=== PATIENT | female | born 1995 ===

== ENCOUNTER 2017-05-31 10:12 | Emergency (ER) | payer MEDICAID, OTHER ==
[2017-05-31 11:25] LABS: HCG,QUALITATIVE URINE NEGATIVE (NEGATIVE)
[2017-05-31] MEDS ORDERED: Sodium Chloride 0.9% 1,000 ML IV STA (12:04)
[2017-05-31 12:32] LABS: URINE BILIRUBIN NEGATIVE (NEGATIVE); URINE CLARITY Clear (Clear); URINE COLOR YELLOW (YELLOW); URINE GLUCOSE (UA) NEGATIVE (Normal)
[2017-05-31 12:33] LABS: URINE BLOOD NEGATIVE (NEGATIVE); URINE PROTEIN NEGATIVE (NEGATIVE); URINE UROBILINOGEN 0.2 mg/dL (0.2-1.0)
[2017-05-31 12:34] LABS: URINE LEUKOCYTE ESTERASE Negative Leu/uL (Negative)
[2017-05-31 12:48] LABS: BASO % 0.3 % (0.0-2.0); EOS % 0.1 % (0.0-4.0); HEMOGLOBIN 14.5 g/dL (11.0-16.0); MEAN CELL VOLUME 93.6 fL (81.0-99.0); MEAN CORPUSCULAR HEMOGLOBIN 31.4 pg (27.0-31.0); MEAN CORPUSCULAR HGB CONC 33.5 g/dL (33.0-37.0); MEAN PLATELET VOLUME 9.6 fL (7.2-11.7); MONO # 0.3 K/uL (0.0-0.8); MONO % 2.4 % (0.0-10.0); NEUT # 9.1 K/uL (1.8-7.0); NEUT % 87.2 % (50.0-75.0); RBC 4.62 Mil/uL (3.80-5.20); RED CELL DISTRIBUTION WIDTH 13.1 % (11.5-14.5); WHITE BLOOD COUNT 10.4 K/uL (4.8-10.8)
[2017-05-31] MEDS ORDERED: Sodium Chloride 0.9% 1,000 ML ONE (12:54)
[2017-05-31 13:04] LABS: ALB/GLOB RATIO 1.2 (1.0-2.1); ALBUMIN 4.6 g/dL (3.5-5.0); AMYLASE 94 U/L (30-110); CALCIUM 8.9 mg/dl (8.6-10.4); GFR AFRICAN-AMERICAN > 60; GFR NON-AFRICAN AMERICAN > 60; LIPASE 75 U/L (23-300)
[2017-05-31 13:08] LABS: ALT/SGPT 28 U/L (9-52); AST/SGOT 39 U/L (14-36); BLOOD UREA NITROGEN 15 mg/dL (7-17)
--- NOTE | 2017-05-31 14:02 | C.PDOC ---
History Of Present Illness 22 y/o female presents to the ER complaining of sudden onset of pelvic pain which started 1 hr [employer]. Patient states that has been having irregular periods and her last period was 2 months ago. Patient denies having fever,chills, back pain, hematuria, and dysuria. Chief Complaint (Nursing): Abdominal Pain History Per: Patient History/Exam Limitations: no limitations Onset/Duration Of Symptoms: Hrs Current Symptoms Are (Timing): Still Present Severity: Moderate Past Medical History Reviewed: Historical Data, Nursing Documentation, Vital Signs Vital Signs: Last Vital Signs Temp 98.1 F 05/31/17 15:17 Pulse 95 H 05/31/17 15:17 Resp 18 05/31/17 15:17 BP 109/70 05/31/17 15:17 Pulse Ox 100 05/31/17 18:41 - Medical History PMH: No Chronic Diseases Surgical History: No Surg Hx Family History: States: No Known Family Hx - Social History Hx Alcohol Use: Yes Hx Substance Use: No - Immunization History Hx Tetanus Toxoid Vaccination: No Hx Influenza Vaccination: No Hx Pneumococcal Vaccination: No Review Of Systems Except As Marked, All Systems Reviewed And Found Negative. Constitutional: Negative for: Fever, Chills Genitourinary: Positive for: Pelvic Pain. Negative for: Dysuria, Hematuria Musculoskeletal: Negative for: Back Pain Physical Exam - Physical Exam Appears: Non-toxic, No Acute Distress Skin: Normal Color, Warm, Dry Head: Atraumatic, Normacephalic Eye(s): bilateral: Normal Inspection Nose: Normal Oral Mucosa: Moist Neck: Supple Chest: Symmetrical Cardiovascular: Rhythm Regular Respiratory: Normal Breath Sounds, No Rales, No Rhonchi, No Wheezing Gastrointestinal/Abdominal: Soft, Tenderness (suprapubic tenderness) Extremity: Normal ROM Neurological/Psych: Oriented x3, Normal Speech ED Course And Treatment - Laboratory Results Result Diagrams: 05/31/17 12:43 05/31/17 12:43 O2 Sat by Pulse Oximetry: 100 (RA) Pulse Ox Interpretation: Normal - CT Scan/US US-Pelvis Other Rad Studies (CT/US): Read By Radiologist, Radiology Report Reviewed CT/US Interpretation: HISTORY: Sharp left hemipelvis pain. Menstrual status: LMP 04/10/2017. COMPARISON: None available. TECHNIQUE: Transabdominal, transvaginal. Real -time technique with 2D, duplex and color Doppler. FINDINGS : UTERUS: Measures 3.8 x 5.1 x 8.6 cm. Normal in size and appearance. No fibroid or other mass lesion seen. ENDOMETRIUM: Measures 12.6 mm in diameter. Endometrial thickening. Tiny cystic focus 1.6 x 1.9 x 3.3 mm. CERVIX: No cervical abnormality identified.Incidental finding: Nabothian cysts the largest measures less than 1 cm. RIGHT OVARY: Measures 3.8 x 4.1 x 5.7 cm. No solid mass. Normal flow. Multiple subcentimeter follicles. LEFT OVARY: Measures 3.4 x 4.2 x 5.9 cm. No solid mass. Normal flow. Complex perhaps hemorrhagic cyst 1.6 x 1.8 x 1.7 cm. FREE FLUID: Trace free fluid identified in the pelvis/cul de sac. OTHER FINDINGS: None. IMPRESSION: Endometrial hypertrophy, tiny cystic structure within the endometrium. Correlation with beta HCG if clinically appropriate advised. Additional benign and/or incidental findings described above. Progress Note: Labs, UA, and US- Pelvis ordered. Patient given IV Fluids and Toradol IV. On re-evaluation patient feels better and is stable to be d/c home with PMD and OBGYN follow up. Disposition - Disposition Referrals: [facility] [Outside] Disposition: HOME/ ROUTINE Disposition Time: 15:05 Condition: STABLE Additional Instructions: Follow up with OBGYN within 2-3 days. Return to ED if feel worse. Prescriptions: Naproxen [Naprosyn] 1 tab PO BID PRN #25 tab PRN Reason: Pain Instructions: Ovarian Cysts Forms: [facility] (Finnish) - Clinical Impression Clinical Impression: Ovarian cyst - PA / FLAG SIGNALER / Resident Statement MD/DO has reviewed & agrees with the documentation as recorded. - Scribe Statement The provider has reviewed the documentation as recorded by the Ny Benavidez Provider Attestation All medical record entries made by the Shannanibjohann were at my direction and personally dictated by me. I have reviewed the chart and agree that the record accurately reflects my personal performance of the history, physical exam, medical decision making, and the department course for this patient. I have also personally directed, reviewed, and agree with the discharge instructions and disposition.
--- NOTE | 2017-05-31 14:39 | US ---
HISTORY: Sharp left hemipelvis pain. Menstrual status: LMP 04/10/2017. COMPARISON: None available. TECHNIQUE: Transabdominal, transvaginal. Real -time technique with 2D, duplex and color Doppler. FINDINGS: UTERUS: Measures 3.8 x 5.1 x 8.6 cm. Normal in size and appearance. No fibroid or other mass lesion seen. ENDOMETRIUM: Measures 12.6 mm in diameter. Endometrial thickening. Tiny cystic focus 1.6 x 1.9 x 3.3 mm. CERVIX: No cervical abnormality identified.Incidental finding: Nabothian cysts the largest measures less than 1 cm. RIGHT OVARY: Measures 3.8 x 4.1 x 5.7 cm. No solid mass. Normal flow. Multiple subcentimeter follicles. LEFT OVARY: Measures 3.4 x 4.2 x 5.9 cm. No solid mass. Normal flow. Complex perhaps hemorrhagic cyst 1.6 x 1.8 x 1.7 cm FREE FLUID: Trace free fluid identified in the pelvis/cul de sac. OTHER FINDINGS: None. IMPRESSION: Endometrial hypertrophy, tiny cystic structure within the endometrium. Correlation with beta HCG if clinically appropriate advised Additional benign and/or incidental findings described above.
[2017-05-31 15:18] VITALS: BP 109/70; PULSE 95; RESP 18; TEMP 98.1
[2017-05-31 18:41] VITALS: O2SAT 100
== END 2017-05-31 15:20 | disposition home or self-care (01) ==
LOC: C.ER 10:12
DX: N83.209 Unspecified ovarian cyst, unspecified side (principal)
CPT/HCPCS: 76830; 76856; 80053; 81001; 82150; 83690; 84703; 85025; 96361; 96374; 99283; J1885; J7040

== ENCOUNTER 2017-08-24 14:03 | Emergency (ER) | payer MEDICAID, OTHER ==
[2017-08-24 14:13] VITALS: BP 138/90; PULSE 87; RESP 18; TEMP 98.8; O2SAT 100
[2017-08-24] MEDS ORDERED: Fluorescein 1 mg Ophthalmic Strip ONE (14:28)
--- NOTE | 2017-08-24 14:35 | C.PDOC ---
History Of Present Illness 22 year old female presents to the ER complaining of burning and foreign body sensation to the right eye that began last night. Denies any trauma or eye injury. Patient states she was lying down and felt as if an eyelash was in the eye. She then took her contacts out and could not find any eyelash or foreign body. This morning the sensation persisted prompting patient to come in for evaluation. Otherwise denies any blurred or double vision, crusting, discharge, fever, or itchiness. Time Seen by Provider: 08/24/17 14:15 Chief Complaint (Nursing): Eye Problem History Per: Patient History/Exam Limitations: no limitations Onset/Duration Of Symptoms: Days Current Symptoms Are (Timing): Still Present Injury To Eye?: No Wears Contact Lens?: Yes Associated Symptoms: FB Sensation Past Medical History Reviewed: Historical Data, Nursing Documentation, Vital Signs Vital Signs: Last Vital Signs Temp 98.8 F 08/24/17 14:11 Pulse 87 08/24/17 14:11 Resp 18 08/24/17 14:11 BP 138/90 08/24/17 14:11 Pulse Ox 100 08/24/17 14:37 Family History: States: No Known Family Hx - Social History Hx Tobacco Use: No Hx Alcohol Use: Yes Hx Substance Use: No - Immunization History Hx Tetanus Toxoid Vaccination: No Hx Influenza Vaccination: No Hx Pneumococcal Vaccination: No Review Of Systems Except As Marked, All Systems Reviewed And Found Negative. Constitutional: Negative for: Fever Eyes: Positive for: Other (burning and foreign body sensation to right eye). Negative for: Vision Change, Eyelid Inflammation Physical Exam - Physical Exam Appears: Well, Non-toxic, No Acute Distress Skin: Normal Color, Warm, Dry Head: Atraumatic, Normacephalic Eye(s): bilateral: PERRL, EOMI, right: Other (1 small white spot over the cornea , circular in nature, with some uptake of fluorescein contrast) Nose: Normal Oral Mucosa: Moist Neck: Normal ROM, Supple Neurological/Psych: Oriented x3, Normal Speech Gait: Steady ED Course And Treatment O2 Sat by Pulse Oximetry: 100 (RA) Pulse Ox Interpretation: Normal Medical Decision Making Medical Decision Making: Impression: 22 y/o female with FB sensation to right eye Time: 14:35 Plan: Eye examined using contrast, revealin small white spot over the cornea, circular in nature, with some uptake of fluorescein contrast. Disposition Counseled Patient/Family Regarding: Diagnosis, Need For Followup, Rx Given - Disposition Referrals: Karel Rai [Staff Provider] - Disposition: HOME/ ROUTINE Disposition Time: 14:38 Condition: STABLE Prescriptions: Bacitracin [Bacitracin Opht OINT] 1 applic OD TID #1 tube Forms: [facility] (Portuguese), General Discharge Instructions - POA Present On Arrival: None - Clinical Impression Clinical Impression: Eye infection - Scribe Statement The provider has reviewed the documentation as recorded by the Ny Sumner Provider Attestation: All medical record entries made by the Shannanibjohann were at my direction and personally dictated by me. I have reviewed the chart and agree that the record accurately reflects my personal performance of the history, physical exam, medical decision making, and the department course for this patient. I have also personally directed, reviewed, and agree with the discharge instructions and disposition.
== END 2017-08-24 14:55 | disposition home or self-care (01) ==
LOC: C.ER 14:03
DX: H44.001 Unspecified purulent endophthalmitis, right eye (principal)